=== PATIENT | male | born 1980 | race African-American/Black ===

== ENCOUNTER 2020-01-19 12:59 | Inpatient (IN) | payer OTHER ==
[~2020-01-19] VITALS: Ht 182.9 cm; Wt 120.7 kg
--- NOTE | 2020-01-19 12:59 | NUR ---
TAKEN TO BED 11 BY EMS
[2020-01-19 13:04] VITALS: BP 150/77
--- NOTE | 2020-01-19 13:21 | NUR ---
39 Y/O MALE PRESENTS WITH RIGHT HAND CELLULITIS/GANGRENE. PT FRACTURED HAND ONE MONTH AGO AND GOT A CAST PUT ON January. PT STATES HE WAS COOKING BREAKFAST THIS MORNING AND NEEDED TO WASH DISHES, SO HE CUT OFF HIS CAST. RIGHT HAND NEAR THUMB IS SWOLLEN/WEEPING/GANGRENOUS. RADIAL PULSES PRESENT 2+, CMS+. ROM + IN RIGHT HAND/FINGERS. CAP REFILL <3 UPPER BILAT EXT. NO LACERATION NOTED TO AREA. AAOX4. NO PMH NKA
[2020-01-19] MEDS ORDERED: NACL 0.9% 1,000 ML IV SCH (13:31)
[2020-01-19] MEDS ORDERED: MORPHINE SULFATE 4 MG/ML SYR IVP ONE (13:35)
[2020-01-19] MEDS ORDERED: AMPICILLIN/SULBACTAM 3 GM in NACL 0.9% MINI-BAG PLUS 100 ML IV ONE (13:35)
[2020-01-19] MEDS ORDERED: AMPICILLIN/SULBACTAM 3 GM VIAL ONE (13:39)
[2020-01-19 14:21] LABS: BASOPHILS % (AUTO) 0.7 % (0.0-2.0); EOSINOPHILS # (AUTO) 0.3 K/uL (0-0.4); EOSINOPHILS % (AUTO) 4.1 % (0.0-4.0); HEMATOCRIT 40.9 % (36-52); HEMOGLOBIN 12.9 g/dL (12.0-18.0); LYMPHOCYTES # (AUTO) 2.9 K/uL (2.0-11.5); LYMPHOCYTES % (AUTO) 47.5 % (20.5-51.1); MEAN CORPUSCULAR HEMOGLOBIN 24 pg (27-31); MEAN CORPUSCULAR HGB CONC 32 g/dL (33-37); MEAN CORPUSCULAR VOLUME 76.5 fL (80-94); MONOCYTES # (AUTO) 0.6 K/uL (0.8-1.0); MONOCYTES % (AUTO) 9.8 % (1.7-9.3); NEUTROPHILS # (AUTO) 2.3 K/uL (1.8-7.7); NEUTROPHILS % (AUTO) 37.9 % (42.2-75.2); PLATELET COUNT (AUTO) 361 K/uL (140-450); RED BLOOD CELL COUNT(AUTO) 5.35 MIL/uL (4.20-6.10); RED CELL DISTRIBUTION WIDTH 14.3 % (11.6-13.7); WHITE BLOOD COUNT (AUTO) 6.1 K/uL (4.8-10.8)
[2020-01-19 14:35] LABS: ANION GAP 14.8 (8-16); CARBON DIOXIDE 29.3 mmol/L (21-32); CREATININE 1.2 mg/dL (0.6-1.3); POTASSIUM 4.1 mmol/L (3.5-5.1)
--- NOTE | 2020-01-19 14:50 | NUR ---
PT RESTING IN BED WITH EYES OPEN. RESP EVEN AND UNLABORED. VSS
[2020-01-19] MEDS ORDERED: ONDANSETRON 4 MG/2 ML VIAL IM/IVP PRN (17:50)
[2020-01-19] MEDS ORDERED: MORPHINE SULFATE 2 MG/ML SYR IVP PRN (17:50)
[2020-01-19] MEDS ORDERED: DOCUSATE SODIUM 100 MG GELCAP PO PRN (17:50)
[2020-01-19] MEDS ORDERED: HYDROcodone/APAP 5/325 MG 1 TAB TAB PO PRN (17:50)
[2020-01-19] MEDS ORDERED: ACETAMINOPHEN 325 MG TAB PO PRN (17:50)
[2020-01-19 18:25] LABS: PHOSPHORUS 3.5 mg/dL (2.5-4.9); THYROID STIMULATING HORMONE 1.51 uIU/mL (0.34-3.74)
--- NOTE | 2020-01-19 18:25 | NUR ---
MEAL TRAY GIVEN TO PATIENT
--- NOTE | 2020-01-19 18:43 | NUR ---
Patient will be admitted to care of [facility]. Admited to MED SURG. Will go to room 119. Belongings list completed. Report to VEE.
[2020-01-19 19:12] LABS: APPEARANCE,URINE CLEAR (CLEAR); BILIRUBIN,URINE NEGATIVE (NEGATIVE); BLOOD, URINE NEGATIVE (NEGATIVE); COLOR,URINE YELLOW (YELLOW); LEUKOCYTE ESTERASE ,URINE NEGATIVE (NEGATIVE); NITRITE, URINE NEGATIVE (NEGATIVE); PH,URINE 5.5 (5.0-9.0); UGLUCOSE NEGATIVE (NEGATIVE)
[2020-01-19 19:24] LABS: BARBITURATE, URINE NEGATIVE ng/ml (NEG <=200); BENZODIAZEPINE, URINE NEGATIVE ng/mL (NEG <=200); COCAINE, URINE NEGATIVE ng/mL (NEG <=300)
[2020-01-19 19:25] LABS: CANNABINOID, URINE POSITIVE ng/mL (NEG <=50); OPIATE, URINE NEGATIVE ng/mL (NEG <=2000); PHENCYCLIDINE SCREEN,URINE NEGATIVE ng/mL (NEG <=25)
--- NOTE | 2020-01-19 19:30 | NUR ---
RECEIVED BEDSIDE ENDORSEMENT FROM AM SHIFT RN. THE DOCTOR IS CURRENTLY EXAMINING THE PATIENT. RESPIRATION EVEN AND UNLABORED. IV SITE TO LAC 20G. PLAN OF CARE WAS DISCUSSED. WILL CONTINUE TO MONITOR.
[2020-01-19] MEDS ORDERED: VANCOMYCIN PER PHARMACY MC PRN (20:10)
[2020-01-19] MEDS ORDERED: VANCOMYCIN 2,000 MG in DEXTROSE 5% 500 ML IV ONE (20:15)
[2020-01-19] MEDS ORDERED: VANCOMYCIN 1,000 MG VIAL ONE ×2 (21:45→21:46)
--- NOTE | 2020-01-19 21:49 | NUR ---
DUE MEDS GIVEN ORDERED. NO A/R NOTED. TOLERATED WELL.
[2020-01-20] VITALS: BP 133/73
[2020-01-20] MEDS: AMPICILLIN/SULBACTAM 3 GM in NACL 0.9% 100 ML IV SCH ×4 (00:11→18:23)
--- NOTE | 2020-01-20 00:30 | NUR ---
V/S TAKEN AND RECORDED. KEPT COMFORTABLE. CALL LIGHT WITHIN REACH
--- NOTE | 2020-01-20 05:21 | NUR ---
UNASYN IVPB GIVEN ORDERED. TOLERATED WELL. NO A/R NOTED. DENIES PAIN. WILL CONTINUE TO MONITOR.
[2020-01-20 06:09] LABS: T4 (THYROXINE) 8.1 ug/dL (4.5-12.0)
[2020-01-20 06:43] LABS: BASOPHILS # (AUTO) 0.1 K/uL (0.00-0.22); EOSINOPHILS # (AUTO) 0.4 K/uL (0-0.4); EOSINOPHILS % (AUTO) 5.3 % (0.0-4.0); HEMATOCRIT 37.4 % (36-52); HEMOGLOBIN 11.7 g/dL (12.0-18.0); LYMPHOCYTES # (AUTO) 3.6 K/uL (2.0-11.5); LYMPHOCYTES % (AUTO) 54.5 % (20.5-51.1); MEAN CORPUSCULAR HEMOGLOBIN 24 pg (27-31); MEAN CORPUSCULAR HGB CONC 31 g/dL (33-37); MONOCYTES # (AUTO) 0.8 K/uL (0.8-1.0); NEUTROPHILS # (AUTO) 1.8 K/uL (1.8-7.7); NEUTROPHILS % (AUTO) 27.2 % (42.2-75.2); PLATELET COUNT (AUTO) 321 K/uL (140-450); RED BLOOD CELL COUNT(AUTO) 4.91 MIL/uL (4.20-6.10); RED CELL DISTRIBUTION WIDTH 14.3 % (11.6-13.7); WHITE BLOOD COUNT (AUTO) 6.6 K/uL (4.8-10.8)
--- NOTE | 2020-01-20 07:09 | NUR ---
ENDORSED PATIENT TO AM SHIFT RN FOR CONTINUITY OF CARE.
--- NOTE | 2020-01-20 07:10 | NUR ---
RECEIVED ENDORSEMENT FROM PRECIPITATOR NURSE. PATIENT IS AOX4, ABLE TO VERBALIZE NEEDS. NO C/O PAIN, NO SOB RESPIRATION EVEN UNLABORED. ON ROOM AIR. IV INTACT AND PATENT ON LAC 20G RUNNING ON NS AT TKO, INFUSING WELL. PLAN OF CARE REVIEWED. PT VERBALIZED UNDERSTANDING. ALL SAFETY MEASURES IN PLACE. BED IS AT LOW POSITION. CALL LIGHT WITHIN REACH. WILL CONTINUE TO MONITOR
[2020-01-20 07:27] LABS: CHOL/HDL RATIO 3.9 (1-4.5)
[2020-01-20 08:00] VITALS: BP 134/86
[2020-01-20 08:19] LABS: ANION GAP 14.6 (8-16); CARBON DIOXIDE 26.6 mmol/L (21-32); POTASSIUM 4.2 mmol/L (3.5-5.1)
[2020-01-20 08:28] LABS: CREATININE 1.1 mg/dL (0.6-1.3)
[2020-01-20] MEDS ORDERED: ASCORBIC ACID 500 MG TAB PO SCH (09:00)
--- NOTE | 2020-01-20 09:15 | NUR ---
DUE MORNING MEDS GIVEN. TOLERATED WELL
--- NOTE | 2020-01-20 10:05 | NUR ---
WOUND ASSESSMENT DONE WITH THIS 39 Y/O MALE PT. AAX4 AND HE EXPLAINS THAT RIGHT HAND WAS COVERED WITH CAST FOR FEW WEEKS AND DEVELOP EDEMA, DRAINAGE AND RASHES. ULTRA SOUND OF RIGHT HAND WAS DONE EARLIER THIS MORNING, RESULT PENDING. POC DISCUSSED WITH PRIMARY RN, DR. BULLARD AND PT. PT. VERBALIZES UNDERSTANDING. -CONTACT DERMATITIS RIGHT DORSAL AND LATERAL HAND SKIN INTACT DRY SCALY AND RASHES -RIGHT THUMB AND PALM 5X4 CM ERYTHEMA AND 1 CM TALL INDURATION CLOSE WOUND, DENUDED, WEEPING SKIN WITH SMALL AMOUNT PURULENT DRAINAGE, MILD ODOR, PAIN LEVEL 5/10 RECOMMENDATIONS: -SURGEON CONSULT -APPLY HYDRAGUARD TO CONTACT DERMATITIS ON RIGHT DORSAL AND LATERAL HAND BID AND JUDY -CLEANSE RIGHT THUMB AND PALM WITH NS, PAT DRY APPLY ISLAND DRESSING QD AND PRN -PLEASE CONTACT WOUND CARE NURSE IF ANY QUESTION OR CHANGE OF WOUND CONDITION
[2020-01-20] MEDS: VANCOMYCIN 1,750 MG in DEXTROSE 5% 500 ML IV SCH ×2 (10:14→23:04)
--- NOTE | 2020-01-20 10:15 | NUR ---
VANCOCIN GIVEN IVPB. INFUSING WELL. PT IN STABLE CONDITION. WOUND DRESSING DONE ON RIGHT HAND
[2020-01-20] MEDS: NICOTINE TRANSD SYS 7 MG/24 HR PATCH TD SCH (11:20)
--- NOTE | 2020-01-20 11:28 | NUR ---
DC PLANNIN YRS OLD MALE PATIENT WAS ADMITTED FROM HOME WITH A DX OF RT HAND CELLULITIS. PATIENT HAS NO MEDICAL HISTORY. XRAY OF RT HAND SHOWED NORMAL CT RIGHT UPPER EXT MILD TISSUE EDEMA AT THE BASE OF THE 1SR DIGIT OF THE RT HAND. CXR (-) BLOOD AND WOUND CULTURE PENDING. STARTED ON IV UNISON AND VANCOMYCIN . CONSULTED WITH SURGEON. DC PLAN PER SURGEON RECOMMENDATION. CM TO FOLLOW Addendum: 01/22/20 at 1105 by Lia Low CM DC PLANNING: SEEN BY DR BARRIENTOS SURGEON RECOMMENDED CAN BE DISCHARGED WITH ORAL ABX. SPOKE WITH DR MADDEN RESIDENT STATED WAITING FOR THE SENSITIVITY OF THE RT HAND WOUND CULTURE. CALLED LAB SPOKE WITH LISA WE HAVE THE FINAL RESULT BUT NOT THE SENSITIVITY. RECEIVED A CALL FROM [facility] [phone] SPOKE WITH GRETA UPDATED HER WITH PT'S CONDITION AND WAITING FOR THE SENSITIVITY OF THE CULTURE IN ORDER TO SEND HIM WITH THE RIGHT PO ABX. PER GRETA WILL EMAIL ME THE LOCATION [facility] FOR THE WEEKEND. CM TO FOLLOW
--- NOTE | 2020-01-20 12:15 | NUR ---
PT IN BED EATING LUNCH. DUE UNASYN IVPB GIVEN ORDERED. INFUSING WELL. NO SOB NO C/O PAIN
[2020-01-20] MEDS: HYDRAGUARD CREAM TP SCH (13:42)
--- NOTE | 2020-01-20 14:30 | NUR ---
PT IN BED RESTING. NO APPARENT DISTRESS NOTED.
--- NOTE | 2020-01-20 15:10 | NUR ---
PATIENT HAS BEEN SCREENED AND CATEGORIZED LOW NUTRITION RISK. PATIENT WILL BE SEEN WITHIN 7 DAYS OF ADMISSION. 01/26/[address]
[2020-01-20 16:00] VITALS: BP 121/84
--- NOTE | 2020-01-20 18:00 | NUR ---
DUE IVPB UNASYN GIVEN ORDERED INFUSING WELL.
--- NOTE | 2020-01-20 19:20 | NUR ---
ENDORSED TO NIGHT NURSE FOR CONTINUITY OF CARE. IN STABLE CONDITION
--- NOTE | 2020-01-20 19:21 | NUR ---
RECD. RESTING IN BED, AWAKE, A/OX4. RESPIRATION EVEN AND UNLABORED. IV OF NS AT 10 ML/HR INFUSING, LEFT AC G20. RIGHT HAND WITH SWELLING AND WOUND BUT NO DISCHARGE NOTED. ELEVATED ARM ON PILLOWS. INDEPENDENT AND PLEASANT. PLAN OF ARE FOR THE SHIFT DISCUSSED. VERBALIZED UNDERSTANDING DENIES PAIN 0/10.
--- NOTE | 2020-01-20 21:00 | NUR ---
RESTING IN BED, REQUESTING FOR HIS VITAMIN C TO BE INCREASED FROM 500 MG TO 1000 MG. WILL INFORMED
--- NOTE | 2020-01-20 22:00 | NUR ---
INFORMED PATIENT MD INCREASED HIS VIT C FROM 500 TO 1000 MG.
[2020-01-21] VITALS: BP 112/76
--- NOTE | 2020-01-21 | NUR ---
RESTING IN BED, INQUIRED IF HE WANTS PAIN MEDICATION, STATED PAIN IN THE RIGHT HAND IS 1/10 AND IT IS TOLERABLE AND HE DOES NOT WANT PAIN MEDICATION.
[2020-01-21] MEDS: HYDRAGUARD CREAM TP SCH ×2 (00:45→13:44)
[2020-01-21] MEDS: AMPICILLIN/SULBACTAM 3 GM in NACL 0.9% 100 ML IV SCH ×4 (01:30→18:07)
--- NOTE | 2020-01-21 02:00 | NUR ---
STILL AWAKE, CONVERSING WITH SOMEBODY IN HIS CELLPHONE.
--- NOTE | 2020-01-21 03:00 | NUR ---
SLEEPING COMFORTABLY IN BED.
--- NOTE | 2020-01-21 05:54 | NUR ---
COMFORTABLY RESTING IN BED, UNASYN IVPB INFUSED BY URSULA AYALA. PT. NO COMPLAINT OF PAIN, 0/10.
--- NOTE | 2020-01-21 07:15 | NUR ---
RECEIVE REPORT FROM NIGHT NURSE FOR CONTINUITY OF CARE, PT IS AAOX4, PT IS STABLE, RESPIRATIONS ARE EVEN AND UNLABORED ON ROOM AIR, PT HAS LAC 20G INFUSING NS AT 10ML/H, PT RIGHT HAND IS BANDAGE, INTRODUCE SELF, UPDATED WHITEBOARD, CALL LIGHT WITHIN REACH, SAFETY MEASURES IN PLACE, WILL CONTINUE TO MONITOR.
--- NOTE | 2020-01-21 07:20 | NUR ---
CONDITION REMAIN STABLE. NO PAIN MEDICATION GIVEN DURING SHIFT, PATIENT DOES NOT LIKE TO TAKE MEDICATION. ENDORSED TO AM SHIFT NURSE FOR CONTINUITY OF CARE.
[2020-01-21 08:00] VITALS: BP 121/77
[2020-01-21] MEDS: NICOTINE TRANSD SYS 7 MG/24 HR PATCH TD SCH (08:20)
[2020-01-21] MEDS: ASCORBIC ACID 500 MG TAB PO SCH (08:20)
--- NOTE | 2020-01-21 08:24 | NUR ---
ADMINISTERED SCHEDULED MEDICATION, EDUCATION GIVEN, PT VERBALIZED UNDERSTANDING, PT TOLERATED MEDICATION WELL, PT IS STABLE, CALL LIGHT WITHIN REACH.
[2020-01-21 10:06] LABS: BASOPHILS # (AUTO) 0.1 K/uL (0.00-0.22); EOSINOPHILS # (AUTO) 0.3 K/uL (0-0.4); EOSINOPHILS % (AUTO) 6.4 % (0.0-4.0); HEMATOCRIT 38.5 % (36-52); HEMOGLOBIN 12.2 g/dL (12.0-18.0); LYMPHOCYTES # (AUTO) 2.1 K/uL (2.0-11.5); LYMPHOCYTES % (AUTO) 42.3 % (20.5-51.1); MEAN CORPUSCULAR HEMOGLOBIN 24 pg (27-31); MEAN CORPUSCULAR HGB CONC 32 g/dL (33-37); MEAN CORPUSCULAR VOLUME 75.3 fL (80-94); MONOCYTES # (AUTO) 0.5 K/uL (0.8-1.0); MONOCYTES % (AUTO) 11.3 % (1.7-9.3); NEUTROPHILS # (AUTO) 1.9 K/uL (1.8-7.7); PLATELET COUNT (AUTO) 329 K/uL (140-450); RED BLOOD CELL COUNT(AUTO) 5.12 MIL/uL (4.20-6.10); WHITE BLOOD COUNT (AUTO) 4.9 K/uL (4.8-10.8)
[2020-01-21 10:24] LABS: ANION GAP 9.4 (8-16); CARBON DIOXIDE 32.7 mmol/L (21-32); CREATININE 1.1 mg/dL (0.6-1.3); POTASSIUM 4.1 mmol/L (3.5-5.1)
[2020-01-21 11:05] LABS: MAGNESIUM 2.1 mg/dL (1.8-2.4); PHOSPHORUS 3.6 mg/dL (2.5-4.9)
[2020-01-21] MEDS: VANCOMYCIN 1,750 MG in DEXTROSE 5% 500 ML IV SCH ×2 (11:07→21:21)
--- NOTE | 2020-01-21 11:10 | NUR ---
ADMINISTERED SCHEDULED MEDICATION, MEDICATION EDUCATION GIVEN, PT VERBALIZED UNDERSTANDING, PT IS STABLE, CALL LIGHT WITHIN REACH.
--- NOTE | 2020-01-21 13:49 | NUR ---
ADMINISTERED SCHEDULED MEDICATION, PT EDUCATION GIVEN, PT VERBALIZED UNDERSTANDING, PT IS STABLE, CALL LIGHT WITHIN REACH.
--- NOTE | 2020-01-21 15:00 | NUR ---
PT STABLE IN ROOM, CALL LIGHT WITHIN REACH.
[2020-01-21 16:00] VITALS: BP 110/68
--- NOTE | 2020-01-21 18:10 | NUR ---
ADMINISTERED SCHEDULED MEDICATION, PT EDUCATION GIVEN, PT VERBALIZED UNDERSTANDING, PT IS STABLE, CALL LIGHT WITHIN REACH.
--- NOTE | 2020-01-21 19:20 | NUR ---
GAVE REPORT TO NIGHT NURSE FOR CONTINUITY OF CARE, PT IS STABLE
--- NOTE | 2020-01-21 19:27 | NUR ---
RECEIVE BEDSIDE REPORT FROM DAY RN FOR CONTINUITY OF CARE, PT IS AAOX4, PT IS STABLE, RESPIRATIONS ARE EVEN AND UNLABORED ON ROOM AIR, PT HAS LAC 20G INFUSING NS AT 10ML/H, PT RIGHT HAND IS BANDAGE, DX:R HAND CELLULITIS ON IV ABX.PT IS AMBULATORY AND ABLE TO MAKE NEEDS KNOWN. INTRODUCE SELF, UPDATED WHITEBOARD, CALL LIGHT WITHIN REACH, SAFETY MEASURES IN PLACE, WILL CONTINUE TO MONITOR.
--- NOTE | 2020-01-21 21:00 | NUR ---
CLEANSE PATIENT HAND WITH NS PAT DRY THEN APPLIED HYDROGUARD AND WRAPPED. PT WITH MINIMAL DRAINAGE. THUMB IS STILL SWOLLEN AND PATIENT WITH PAIN WITH MOVEMENT. PT TOLERATED WELL. WILL CONTINUE TO MONITOR.
--- NOTE | 2020-01-21 22:10 | NUR ---
PATIENT IS RESTING COMFORTABLY IN BED TALKING ON THE PHONE. DENIES ANY PAIN. NO S/S OF DISTRESS. CALL LIGHT IS WITHIN REACH. WILL CONTINUE TO MONITOR.
[2020-01-22] VITALS: BP 101/53
--- NOTE | 2020-01-22 | NUR ---
VITAL SIGNS ARE WITHIN NORMAL LIMITS. PT DENIES PAIN OR ANY DISCOMFORT. ALL SAFETY MEASURES ARE IN PLACE. CALL LIGHT IS WITHIN REACH. WILL CONTINUE TO MONITOR.
[2020-01-22] MEDS: AMPICILLIN/SULBACTAM 3 GM in NACL 0.9% 100 ML IV SCH ×3 (00:07→12:22)
[2020-01-22] MEDS: HYDRAGUARD CREAM TP SCH ×2 (00:09→13:15)
--- NOTE | 2020-01-22 01:51 | NUR ---
PT IS SLEEPING COMFORTABLY IN BED WITH EYES CLOSED. CALL LIGHT IS WITHIN REACH. WILL CONTINUE TO MONITOR.
--- NOTE | 2020-01-22 02:10 | NUR ---
GAVE BEDSIDE REPORT TO ARON VERGARA. PT IS IN STABLE CONDITION. CALL LIGHT IS WITHIN REACH.
--- NOTE | 2020-01-22 02:11 | NUR ---
RECEIVED REPORT FROM [facility] FOR CONTINUITY OF CARE, PT IN STABLE CONDITION.
--- NOTE | 2020-01-22 05:30 | NUR ---
CAL WARD WAS HUNG EDUCATION REGARDING MEDICATION PURPOSES AND SIDE EFFECTS. PY VERBALIZED UNDERSTANDING. ALL REQUESTED ATTENDED BY STAFF AND CALL ESPINOSA IN REACH.
--- NOTE | 2020-01-22 06:00 | NUR ---
PT IN BED AOX4 DRESSING INTACT . ALL UNIVERSAL PRECAUTIONS IN PLACE.
[2020-01-22 06:12] LABS: BASOPHILS # (AUTO) 0.1 K/uL (0.00-0.22); BASOPHILS % (AUTO) 1.1 % (0.0-2.0); EOSINOPHILS # (AUTO) 0.4 K/uL (0-0.4); EOSINOPHILS % (AUTO) 6.2 % (0.0-4.0); HEMATOCRIT 38.1 % (36-52); HEMOGLOBIN 11.9 g/dL (12.0-18.0); LYMPHOCYTES # (AUTO) 3.3 K/uL (2.0-11.5); LYMPHOCYTES % (AUTO) 50.4 % (20.5-51.1); MEAN CORPUSCULAR HEMOGLOBIN 24 pg (27-31); MEAN CORPUSCULAR HGB CONC 31 g/dL (33-37); MEAN CORPUSCULAR VOLUME 76.2 fL (80-94); MONOCYTES # (AUTO) 0.6 K/uL (0.8-1.0); NEUTROPHILS # (AUTO) 2.2 K/uL (1.8-7.7); NEUTROPHILS % (AUTO) 33.3 % (42.2-75.2); PLATELET COUNT (AUTO) 328 K/uL (140-450); RED BLOOD CELL COUNT(AUTO) 5.01 MIL/uL (4.20-6.10); RED CELL DISTRIBUTION WIDTH 13.7 % (11.6-13.7); WHITE BLOOD COUNT (AUTO) 6.6 K/uL (4.8-10.8)
[2020-01-22 06:57] LABS: MAGNESIUM 1.9 mg/dL (1.8-2.4); PHOSPHORUS 4.1 mg/dL (2.5-4.9)
[2020-01-22 06:58] LABS: ANION GAP 12.5 (8-16); CARBON DIOXIDE 29.7 mmol/L (21-32); CREATININE 1.1 mg/dL (0.6-1.3); POTASSIUM 4.2 mmol/L (3.5-5.1)
--- NOTE | 2020-01-22 07:15 | NUR ---
RECEIVED REPORT FROM BROOMCORN PRESS FEEDER NURSE FOR CONTINUITY OF CARE. PT IN STABLE CONDITION. RESPIRATIONS EVEN AND UNLABORED. IV INTACT AND PATENT. SAFETY MEASURES IN PLACE. BED IN LOW POSITION. CALL LIGHT AT BEDSIDE. WILL CONTINUE TO MONITOR.
[2020-01-22 07:20] LABS: FERRITIN 304 ng/mL (30-400); FOLIC ACID > 20.00 ng/mL (>3.0); TRANSFERRIN 213 mg/dL (177-329)
[2020-01-22 08:00] VITALS: BP 116/67
[2020-01-22] MEDS: VANCOMYCIN 1,750 MG in DEXTROSE 5% 500 ML IV SCH (09:10)
[2020-01-22] MEDS: ASCORBIC ACID 500 MG TAB PO SCH (09:12)
[2020-01-22] MEDS: NICOTINE TRANSD SYS 7 MG/24 HR PATCH TD SCH (09:12)
--- NOTE | 2020-01-22 09:12 | NUR ---
GAVE ORDERED DUE MEDICATIONS AT THIS TIME. PT TOLERATED WELL. WILL CONTINUE TO MONITOR.
--- NOTE | 2020-01-22 12:51 | NUR ---
KATRINA GRIMES AT BEDSIDE FOR PATIENT PLAN OF CARE UPDATE. PATIENT VERBALIZED UNDERSTANDING OF PLAN.
--- NOTE | 2020-01-22 14:20 | NUR ---
PT WATCHING TV AT THIS TIME. RESPIRATIONS EVEN AND UNLABORED. BED IN LOW POSITION. CALL LIGHT AT BEDSIDE. WILL CONTINUE TO MONITOR.
[2020-01-22 16:00] VITALS: BP 133/77
--- NOTE | 2020-01-22 16:33 | NUR ---
PATIENT TALKING ON PHONE AT THIS TIME. RESPIRATIONS EVEN AND UNLABORED. BED IN LOW POSITION. CALL LIGHT AT BEDSIDE. WILL CONTINUE TO MONITOR.
--- NOTE | 2020-01-22 17:50 | NUR ---
PATIENT LEFT FOR PERSONAL ISSUES AT HOME. PATIENT ASKED IF HE CAN GET A [employer] VOUCHER OR BUS PASS, NURSE INFORMED THE PATIENT THAT IF HE LEAVES AGAINST MEDICAL ADVICE THE HOSPITAL WILL NOT NOLVIA A VOUCHER. PATIENT PHYSICALLY REMOVED HIS OWN IV, LUMEN INTACT. PATIENT PUT ON HIS CLOTHING AND WALKED OUT TO THE HALLWAY. NURSE ASKED PATIENT IF HE COULD WAIT TO SPEAK WITH THE DOCTOR TO SEE IF HE CAN PRESCRIBE ANTIBIOTICS BEFORE HE LEAVES. PATIENT STATED "I HAVE TO GO NOW". PATIENT WAS ASKED TO SIGN AMA FORM, PT STATED "I NEED TO GO, SHOW ME HOW I GET OUT OF HERE". PT WAS ESCORTED TO LOBBY. PATIENT LEFT IN STABLE CONDITION. SHAWANDA FERREIRA WAS INFORMED THAT PATIENT LEFT THE HOSPITAL FACILITY.
[2020-01-22] MEDS ORDERED: CIPR500T4 PO (18:21)
[2020-01-23] MEDS ORDERED: CIPR500T4 PO ×2 (09:12→09:30)
[2020-01-23] MEDS ORDERED: ASCO1CAP75 PO (09:30)
== END 2020-01-22 18:01 | disposition left against medical advice (07) | DRG 384 ==
LOC: MED 12:59 → MTU 17:49
PROVIDERS: ADMIT General Practice; ATTEND General Practice
DX: T14.8XXA Other injury of unspecified body region, initial encounter (principal); B96.5 Pseudomonas (aeruginosa) (mallei) (pseudomallei) as the cause of diseases classified elsewhere; L03.113 Cellulitis of right upper limb; F12.90 Cannabis use, unspecified, uncomplicated; Z87.891 Personal history of nicotine dependence; Z83.3 Family history of diabetes mellitus; Z82.49 Family history of ischemic heart disease and other diseases of the circulatory system; Z80.42 Family history of malignant neoplasm of prostate; Z71.51 Drug abuse counseling and surveillance of drug abuser; Z91.81 History of falling; Z71.6 Tobacco abuse counseling; S60.511A Abrasion of right hand, initial encounter; X58.XXXA Exposure to other specified factors, initial encounter; Y93.89 Activity, other specified; Y92.89 Other specified places as the place of occurrence of the external cause; Y99.8 Other external cause status
CPT/HCPCS: 36415; 71045; 73130; 73200; 76881; 80048; 80202; 80305; 81003; 82607; 82728; 82746; 83036; 83540; 83605; 83735; 84100; 84436; 84443; 84484; 85025; 85045; 85651; 86140; 87040; 87070; 87075; 87081; 87186; 87205; 93005; 96365; 99285; J0295; J2270; J3370; J7030; J7060; Q0092

== ENCOUNTER 2023-08-04 11:22 | Emergency (ER) | payer OTHER ==
[~2023-08-04] VITALS: Ht 182.9 cm; Wt 117.9 kg
[~2023-08-04 11:22] MED LIST: ASCO1CAP75 PO; CIPR500T4 PO
[2023-08-04 11:41] VITALS: BP 141/87; PULSE 87; RESP 15; TEMP 97.8; O2SAT 100
[2023-08-04] MEDS ORDERED: ACET-10509 PO (13:09)
[2023-08-04] MEDS ORDERED: BENZ200C4 PO (13:09)
[2023-08-04] MEDS ORDERED: ROB PO (13:09)
[2023-08-04 13:26] VITALS: BP 135/87; PULSE 87; RESP 15; TEMP 97.8; O2SAT 100
== END 2023-08-04 13:26 | disposition home or self-care (01) ==
LOC: MED 11:22
DX: J06.9 Acute upper respiratory infection, unspecified (principal); L91.0 Hypertrophic scar; I10 Essential (primary) hypertension; Z79.899 Other long term (current) drug therapy; Z79.2 Long term (current) use of antibiotics
CPT/HCPCS: 99283

== ENCOUNTER 2024-04-29 10:08 | Emergency (ER) | payer OTHER ==
[~2024-04-29] VITALS: Ht 182.9 cm; Wt 126.6 kg
[~2024-04-29 10:08] MED LIST changes: +ACET-10509 PO; +BENZ200C4 PO; +ROB PO
[2024-04-29 10:10] VITALS: BP 132/92; PULSE 84; RESP 15; TEMP 97.2; O2SAT 97
[2024-04-29] MEDS ORDERED: IBUP-2213 PO (10:40)
[2024-04-29 10:43] VITALS: BP 119/83; PULSE 82; RESP 15; TEMP 97.2; O2SAT 97
[2024-04-29] MEDS: KETOROLAC 60 MG/2 ML VIAL IM ONE (10:45)
== END 2024-04-29 10:43 | disposition home or self-care (01) ==
LOC: MED 10:08
DX: R23.8 Other skin changes (principal); R22.42 Localized swelling, mass and lump, left lower limb; Z79.899 Other long term (current) drug therapy
CPT/HCPCS: 99282